=== PATIENT | male | born 1980 | race African-American/Black ===

== ENCOUNTER 2023-02-10 13:30 | Emergency (ER) | payer BC ==
[~2023-02-10] VITALS: Ht 185.4 cm; Wt 125.0 kg
[2023-02-10] MEDS ORDERED: METHYLPREDNISOLONE SOD SUCC 125MG/2ML (ACT-O-VIAL) IV STA (14:06)
[2023-02-10] MEDS ORDERED: ALBUTEROL (0.083%) 2.5MG/3ML NEB HHN STA (14:06)
[2023-02-10] MEDS ORDERED: IPRATROPIUM BROMIDE (0.02%) 0.5MG/2.5ML NEB HHN STA (14:06)
[2023-02-10 14:43] LABS: CLARITY URINE CLEAR (CLEAR); COLOR URINE YELLOW (YELLOW); GLUCOSE URINE NEGATIVE (NEGATIVE); KETONES URINE NEGATIVE (NEGATIVE); LEUKOCYTE ESTERASE URINE NEGATIVE (NEGATIVE); NITRITE URINE NEGATIVE (NEGATIVE); OCCULT BLOOD URINE NEGATIVE (NEGATIVE); PH URINE 6.5 (4.5-8.0); PROTEIN URINE NEGATIVE (NEGATIVE); SPECIFIC GRAVITY URINE 1.004 (1.005-1.030); UROBILINOGEN URINE 0.2 E.U./dL (0.2-1.0)
[2023-02-10 14:51] LABS: BASOPHILS % 0.3 % (0.0-2.0); EOSINOPHILS % 0.6 % (0.0-5.0); HEMATOCRIT. 43.4 % (42.0-52.0); HEMOGLOBIN. 14.5 g/dL (14.0-18.0); LYMPHOCYTES % 9.8 % (20.0-50.0); MEAN CORPUSCULAR HEMOGLOBIN 29.6 pg (28.0-32.0); MEAN CORPUSCULAR HGB CONC 33.4 g/dL (31.0-37.0); MEAN CORPUSCULAR VOLUME 88.7 fL (80.0-94.0); MONOCYTES % 13.7 % (2.0-8.0); NEUTROPHILS % 75.6 % (40.0-76.0); PLATELET 198 x1000/uL (130-400); RED BLOOD CELL COUNT 4.89 mill/uL (4.7-6.1); RED CELL DISTRIBUTION WIDTH 14.3 % (11.6-14.6); WHITE BLOOD COUNT 6.3 x1000/uL (4.5-11.0)
[2023-02-10 15:00] VITALS: PULSE 83; RESP 16; O2SAT 99
[2023-02-10 15:03] LABS: D-DIMER 0.34 mg/L FEU (<0.50); INR 1.1; PROTHROMBIN TIME 11.8 sec (9.6-11.0)
[2023-02-10 15:05] LABS: ALANINE AMINOTRANSFERASE 58 IU/L (10-49); ALBUMIN 4.6 g/dL (3.2-4.8); ASPARTATE AMINOTRANSFERASE 57 IU/L (<34); BILIRUBIN TOTAL 0.6 mg/dL (0.1-1.0); CALCIUM 9.6 mg/dL (8.7-10.4); CARBON DIOXIDE 30 mEq/L (21-32); CHLORIDE 100 mEq/L (98-107); CREATININE 1.1 mg/dL (0.6-1.3); GLUCOSE 92 mg/dL (70-105); POTASSIUM 3.4 mEq/L (3.5-5.1); PROTEIN TOTAL 7.8 g/dL (6.0-8.3); SODIUM 137 mEq/L (136-145); TROPONIN I HIGH SENSITIVITY 10 ng/L (3.0-53); UREA NITROGEN BLOOD 10 mg/dL (9-23)
[2023-02-10 18:15] VITALS: BP 167/117; PULSE 109; RESP 12; TEMP 98.6
[2023-02-10] MEDS ORDERED: METHYLPREDNISOLONE SOD SUCC 40MG VIAL IV ONE (18:15)
[2023-02-10 18:30] LABS: TROPONIN I HIGH SENSITIVITY 10 ng/L (3.0-53)
[2023-02-10] MEDS ORDERED: METHYLPREDNISOLONE SOD SUCC 125MG/2ML (ACT-O-VIAL) IV NR (18:30)
[2023-02-10] MEDS ORDERED: P20 PO (18:40)
== END 2023-02-10 19:30 | disposition home or self-care (01) ==
LOC: ER 13:30
DX: J45.901 Unspecified asthma with (acute) exacerbation (principal); R55 Syncope and collapse
CPT/HCPCS: 80053; 81003; 83880; 83690; 85025; 85379; 85610; 84484; 36415; 71045; 71275; 94640; 93005; 96374; 96376; 99285; J2930; Z7610 ×3; J2920